=== PATIENT | female | born 1985 | race Caucasian/White ===

== ENCOUNTER 2017-06-20 17:02 | Emergency (ER) | payer SELFPAY ==
[~2017-06-20] VITALS: Ht 579.1 cm; Wt 71.7 kg
[2017-06-20 18:42] VITALS: BP 133/75
== END 2017-06-20 19:19 | disposition home or self-care (01) ==
LOC: ED 17:02
DX: G43.909 Migraine, unspecified, not intractable, without status migrainosus (principal)
CPT/HCPCS: J1885